=== PATIENT | male | born 1995 | race Caucasian/White ===

== ENCOUNTER 2018-06-30 09:32 | Emergency (ER) | payer OTHER | END 2018-06-30 10:46 | disposition other institution (70) | LOC: ED 09:32 | DX: Z02.89 Encounter for other administrative examinations (principal) ==

== ENCOUNTER 2018-06-30 09:32 | Emergency (ER) | payer SELFPAY ==
[~2018-06-30] VITALS: Ht 172.7 cm; Wt 68.0 kg
[2018-06-30 09:36] VITALS: Ht 172.7 cm; Wt 68.0 kg
[2018-06-30 10:45] VITALS: BP 132/84
== END 2018-06-30 10:46 | disposition other institution (70) ==
LOC: ED 09:32
DX: Z13.9 Encounter for screening, unspecified (principal)
CPT/HCPCS: 82962